=== PATIENT | male | born 1985 | race Caucasian/White ===

== ENCOUNTER 2018-01-09 10:20 | Emergency (ER) | payer BC ==
[2018-01-09] MEDS ORDERED: HYDROmorphone 0.5 MG/0.5 ML SYRINGE IM ONE (11:34)
[2018-01-09] MEDS ORDERED: Ketorolac 60 MG/2 ML SDV IM ONE (11:34)
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
== END 2018-01-09 13:03 | disposition home or self-care (01) ==
LOC: JD.ED 10:20
DX: M25.552 Pain in left hip (principal); F17.210 Nicotine dependence, cigarettes, uncomplicated; Z79.899 Other long term (current) drug therapy
CPT/HCPCS: 96372; 99283; J1170; J1885

== ENCOUNTER 2020-02-27 20:57 | Emergency (ER) | payer BC ==
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
--- NOTE | 2020-02-27 21:50 | CR ---
Right shoulder: 3 views of the right shoulder were obtained. Comparison: No prior shoulder imaging is available. Elevated clavicle in relation to the acromium process is seen compatible with acromioclavicular separation. Glenohumeral joint appears normal and alignment. No acute fracture or other bony abnormalities appreciated. Impression: 1. Right acromioclavicular separation. Diagnostic code #3 This report was dictated in MDT
== END 2020-02-27 22:33 | disposition home or self-care (01) ==
LOC: JD.ED 20:57
DX: S43.101A Unspecified dislocation of right acromioclavicular joint, initial encounter (principal); F17.210 Nicotine dependence, cigarettes, uncomplicated; Z98.890 Other specified postprocedural states; W11.XXXA Fall on and from ladder, initial encounter
CPT/HCPCS: 73030-26-RT; 73030-RT; 99282; 99283-25